=== PATIENT | male | born 2000 | race Caucasian/White ===

== ENCOUNTER 2021-11-09 22:50 | Inpatient (IN) | payer MEDICAID ==
[~2021-11-09] VITALS: Ht 162.6 cm; Wt 72.6 kg
[2021-11-09] MEDS ORDERED: LORAZEPAM 2MG/ML CPJ IM STA (22:57)
[2021-11-10] MEDS ORDERED: HALOPERIDOL LACTATE 5MG/ML VIAL IM ONE (00:45)
[2021-11-10 00:53] LABS: BASOPHILS % 0.4 % (0.0-2.0); EOSINOPHILS % 0.9 % (0.0-5.0); HEMATOCRIT. 37.8 % (42.0-52.0); HEMOGLOBIN. 12.9 g/dL (14.0-18.0); LYMPHOCYTES % 23.4 % (20.0-50.0); MEAN CORPUSCULAR HEMOGLOBIN 28.6 pg (28.0-32.0); MEAN CORPUSCULAR VOLUME 83.9 fL (80.0-94.0); MEAN PLATELET VOLUME 9.1 fl (7.4-10.4); MONOCYTES % 9.1 % (2.0-8.0); NEUTROPHILS % 66.2 % (40.0-76.0); PLATELET 237 x1000/uL (130-400); RED CELL DISTRIBUTION WIDTH 13.2 % (11.6-14.6)
[2021-11-10 01:00] LABS: CHLORIDE 108 mEq/L (98-107)
[2021-11-10 01:20] LABS: CREATINE KINASE 3723 IU/L (39-308); ETHANOL BLOOD 110 mg/dL
[2021-11-10] MEDS ORDERED: SODIUM CHLORIDE 0.9% 1000ML BAG (SEPSIS BOLUS) IV ONE (02:45)
[2021-11-10] MEDS ORDERED: HALOPERIDOL LACTATE 5MG/ML VIAL IM SCH (03:00)
[2021-11-10] MEDS ORDERED: POTASSIUM CHLORIDE 20MEQ TABLET SR PO SCH (04:30)
[2021-11-10] MEDS ORDERED: ONDANSETRON HCL 4MG/2ML INJ IV PRN (08:30)
[2021-11-10] MEDS ORDERED: GUAIFENESIN 200MG/10ML SUGAR FREE UDC PO PRN (08:30)
[2021-11-10] MEDS ORDERED: LORAZEPAM 2MG/ML CPJ IV PRN (08:30)
[2021-11-10] MEDS ORDERED: NA PHOS,M-B/NA PHOS,DI-BA ENEMA 118ML PR PRN (08:30)
[2021-11-10] MEDS ORDERED: DOCUSATE SODIUM 100MG CAPSULE PO PRN (08:30)
[2021-11-10] MEDS ORDERED: HYDROCODONE/ACETAMINOPHEN 5/325MG TABLET PO PRN (08:30)
[2021-11-10] MEDS ORDERED: IPRATROPIUM/ALBUTEROL 0.5-3(2.5)MG/3ML NEB NEB PRN (08:30)
[2021-11-10] MEDS ORDERED: ACETAMINOPHEN 325MG TABLET PO PRN (08:30)
[2021-11-10] MEDS ORDERED: CLONIDINE 0.1MG TABLET PO PRN (08:30)
[2021-11-10] MEDS ORDERED: DIPHENHYDRAMINE 50MG/ML VIAL IV PRN (08:30)
[2021-11-10] MEDS ORDERED: MAGNESIUM/ALUMINUM HYDROXIDE/SIMETHICONE 30ML UDC PO PRN (08:30)
[2021-11-10] MEDS ORDERED: NALOXONE HCL 0.4MG/ML VIAL IV PRN (08:45)
[2021-11-10] MEDS: SODIUM CHLORIDE 0.45% 1,000 ML IV SCH ×2 (08:49→21:52)
[2021-11-10] MEDS: ASPIRIN 81MG EC TABLET PO SCH (08:59)
[2021-11-10 16:25] VITALS: BP 106/69
[2021-11-10 19:17] VITALS: BP 106/69
[2021-11-10 20:00] VITALS: BP 119/65
[2021-11-11] VITALS: BP 124/70
[2021-11-11 04:00] VITALS: BP 120/76
[2021-11-11] MEDS: SODIUM CHLORIDE 0.45% 1,000 ML IV SCH (04:59)
[2021-11-11 07:07] LABS: CHLORIDE 108 mEq/L (98-107)
[2021-11-11 07:43] VITALS: BP 117/66
[2021-11-11 07:55] LABS: BASOPHILS % 0.5 % (0.0-2.0); EOSINOPHILS % 4.7 % (0.0-5.0); HEMATOCRIT. 36.9 % (42.0-52.0); HEMOGLOBIN. 12.6 g/dL (14.0-18.0); LYMPHOCYTES % 30.4 % (20.0-50.0); MEAN CORPUSCULAR VOLUME 85.1 fL (80.0-94.0); MEAN PLATELET VOLUME 10.2 fl (7.4-10.4); MONOCYTES % 8.1 % (2.0-8.0); NEUTROPHILS % 56.3 % (40.0-76.0); PLATELET 199 x1000/uL (130-400); RED BLOOD CELL COUNT 4.34 mill/uL (4.7-6.1); RED CELL DISTRIBUTION WIDTH 13.7 % (11.6-14.6)
[2021-11-11] MEDS: ASPIRIN 81MG EC TABLET PO SCH (08:40)
[2021-11-11] MEDS ORDERED: POTASSIUM CHLORIDE 20MEQ TABLET SR PO NR (10:30)
[2021-11-11 11:51] VITALS: BP 99/44
[2021-11-11 13:23] VITALS: BP 99/44
== END 2021-11-11 14:00 | disposition home or self-care (01) | DRG 812 ==
LOC: EDBD 22:50 → ER 22:50 → 8WST 11-10 04:28
PROVIDERS: ADMIT Internal Medicine; ATTEND Internal Medicine
DX: T43.621A Poisoning by amphetamines, accidental (unintentional), initial encounter (principal); G92.9 Unspecified toxic encephalopathy; M62.82 Rhabdomyolysis; Y92.89 Other specified places as the place of occurrence of the external cause; E86.0 Dehydration; E87.6 Hypokalemia; F15.10 Other stimulant abuse, uncomplicated; F10.929 Alcohol use, unspecified with intoxication, unspecified; Y90.5 Blood alcohol level of 100-119 mg/100 ml; Z20.822 Contact with and (suspected) exposure to COVID-19
CPT/HCPCS: 36415; 80048; 80053; 80307; 80320; 80329; 82140; 82550; 84132; 84443; 84484; 85025; 87426; 99285; G0480